=== PATIENT | female | born 1985 | race American Indian/Alaskan Native ===

== ENCOUNTER 2020-03-13 08:48 | Emergency (ER) | payer SELFPAY ==
--- NOTE | 2020-03-13 09:10 | Emergency Department Report ---
ED Seizure HPI - General Stated Complaint: SEIZURE Time Seen by Provider: 03/13/20 09:03 Source: patient, EMS Mode of arrival: Stretcher Limitations: No Limitations - History of Present Illness Initial Comments: Chief complaint: "I had a seizure." HPI: This is a 34-year-old female with history of marijuana dependence who presents with seizure. Her son witnessed seizure activity. Son called 911. Patient admittedly smoked marijuana just prior to the seizure taking place. She smokes marijuana several times throughout the day. She thinks she may have had a seizure earlier this week. At that time, she awakened after experiencing urinary incontinence. No previous history of seizures. No significant past medical history otherwise. MD Complaint: seizure -: Sudden, This morning Witnessed:: Yes Trauma: No Seizure History: none Place: home Possible Precipitating Event: drug use (Marijuana use) Associated Symptoms: denies other symptoms ED Review of Systems ROS: Stated complaint: SEIZURE Other details as noted in HPI Comment: All other systems reviewed and negative Constitutional: denies: fever, malaise Respiratory: denies: cough, shortness of breath Gastrointestinal: denies: abdominal pain, nausea, vomiting ED Past Medical Hx - Past Medical History Previous Medical History?: No - Surgical History Past Surgical History?: No - Social History Smoking Status: Never Smoker Substance Use Type: Marijuana ED Physical Exam - General Limitations: No Limitations General appearance: alert, in no apparent distress - Head Head exam: Present: atraumatic, normocephalic - Eye Eye exam: Present: normal appearance - ENT ENT exam: Present: mucous membranes moist - Neck Neck exam: Present: normal inspection, full ROM - Respiratory Respiratory exam: Present: normal lung sounds bilaterally. Absent: respiratory distress, wheezes, rales, rhonchi - Cardiovascular Cardiovascular Exam: Present: regular rate, normal rhythm, normal heart sounds. Absent: systolic murmur, diastolic murmur, rubs, gallop - GI/Abdominal GI/Abdominal exam: Present: soft, normal bowel sounds. Absent: distended, tenderness, guarding, rebound - Extremities Exam Extremities exam: Present: normal inspection - Neurological Exam Neurological exam: Present: alert, oriented X3 - Expanded Neurological Exam Expanded Patient oriented to: Present: person, place, time Speech: Present: fluid speech Cranial nerves: EOM's Intact: Normal Cerebellar function: Finger to Nose: Normal Upper motor neuron: Vincenzo Neglect: Normal Sensory exam: Upper Extremity Light Touch: Normal Motor strength exam: RUE: 5, LUE: 5, RLE: 5, LLE: 5 Best Eye Response ([place]): (4) open spontaneously Best Motor Response ([place]): (6) obeys commands Best Verbal Response ([place]): (5) oriented [place] Total: 15 - Psychiatric Psychiatric exam: Present: normal affect, normal mood - Skin Skin exam: Present: warm, dry, intact, normal color. Absent: rash ED Course Vital Signs 03/13/20 10:06 Temperature 98.6 F Pulse Rate 88 Respiratory 19 Rate Blood Pressure 119/76 [Left] O2 Sat by Pulse 99 Oximetry ED Medical Decision Making - Lab Data Result diagrams: 03/13/20 09:11 03/13/20 09:11 Laboratory Results - last 24 hr 03/13/20 03/13/20 09:11 09:11 WBC 9.5 RBC 4.33 Hgb 7.2 L Hct 24.6 L MCV 57 L MCH 17 L MCHC 29 L RDW 20.1 H Plt Count 222 Lymph % (Auto) Financial Operations Clerk Weber % (Auto) Financial Operations Clerk Eos % (Auto) Financial Operations Clerk Baso % (Auto) Financial Operations Clerk Lymph # (Auto) Financial Operations Clerk Weber # (Auto) Financial Operations Clerk Eos # (Auto) Financial Operations Clerk Baso # (Auto) Financial Operations Clerk Seg Neutrophils % Financial Operations Clerk Seg Neutrophils # Financial Operations Clerk Sodium 139 Potassium 4.9 Chloride 103.7 Carbon Dioxide 20 L Anion Gap 20 BUN 7 Creatinine 0.6 Estimated GFR > 60 BUN/Creatinine Ratio 12 Glucose 95 Calcium 8.8 Total Bilirubin 0.30 AST 22 ALT 16 Alkaline Phosphatase 70 Total Protein 7.6 Albumin 4.2 Albumin/Globulin Ratio 1.2 - EKG Data -: EKG Interpreted by Me EKG shows normal: sinus rhythm, axis, intervals, QRS complexes, ST-T waves Rate: normal - EKG Data Interpretation: normal EKG 03/13/20 10:21 EKG obtained 0958 EKG interpreted by me EKG obtained EKG interpreted by me Normal sinus rhythm normal rate normal axis normal intervals no ST elevation no ST-T signs of ischemia normal EKG - Radiology Data Radiology results: report reviewed CT head: Without contrast, no acute intracranial abnormality according radiology report - Medical Decision Making This is a healthy 34-year-old female with marijuana dependence. She presents with seizure at home. She admittedly smoked marijuana just prior to the episode. I suspect seizure caused by marijuana use. I strongly suggested cessation of marijuana use. Patient understands that she is not allowed to drive or swim until she is cleared by neurologist. She understands it will be dangerous to work at heights or near hot surfaces without supervision. Patient had normal chemistry. EKG normal. CT head within normal limits. CBC revealed anemia. Critical care attestation.: If time is entered above; I have spent that time in minutes in the direct care of this critically ill patient, excluding procedure time. ED Disposition Clinical Impression: Seizure, Marijuana dependence Disposition: DC-01 TO HOME OR SELFCARE Is pt being admited?: No Does the pt Need Aspirin: No Condition: Stable Instructions: New-Onset Seizure in Adults (ED), Cannabis Abuse (ED) Additional Instructions: You are not allowed to drive until you are cleared by neurologist. Referrals: BURTON MEJIA MD [Staff Physician] - 3-5 Days
[2020-03-13 09:50] LABS: Alanine Aminotransferase 16 units/L (7-56); Albumin 4.2 g/dL (3.9-5); Blood Urea Nitrogen 7 mg/dL (7-17); Calcium 8.8 mg/dL (8.4-10.2); Hemolysis Index 13
[2020-03-13 09:51] LABS: BUN/Creatinine Ratio 12
[2020-03-13 10:10] LABS: Hematocrit 24.6 % (30.3-42.9); Hemoglobin 7.2 gm/dl (10.1-14.3); Mean Corpuscular HGB Conc 29 % (30-34); Red Blood Count 4.33 M/mm3 (3.65-5.03)
[2020-03-13 10:13] LABS: Mean Corpuscular Volume 57 fl (79-97); Red Cell Distribution Width 20.1 % (13.2-15.2)
--- NOTE | 2020-03-13 10:22 | Cat Scan Report ---
CT head/brain wo con INDICATION: Seizure. TECHNIQUE: Routine CT head without contrast. All CT scans at this location are performed using CT dos e reduction for ALARA by means of automated exposure control. COMPARISON: None. FINDINGS: BRAIN / INTRACRANIAL CONTENTS: No acute hemorrhage, mass effect, midline shift, or hydrocephalus. No appreciable acute large territorial or lacunar infarct. No chronic infarct or focal atrophy. Normal b rain volume and ventricular/sulcal size for age. ORBITS: No significant abnormality of visualized orbits. SINUSES / MASTOIDS: No significant abnormality of visualized sinuses and mastoid air cells. ADDITIONAL FINDINGS: None. IMPRESSION: 1. No acute intracranial abnormality. Signer Name: Ayo Sanchez MD Signed: 03/13/2020 10:18 AM Workstation Name: [id number]
[2020-03-13 10:46] LABS: Platelet Count 222 K/mm3 (140-440)
[2020-03-13 11:54] VITALS: BP 140/77
== END 2020-03-13 11:09 | disposition home or self-care (01) ==
LOC: ED 08:48
DX: G40.909 Epilepsy, unspecified, not intractable, without status epilepticus (principal); F12.20 Cannabis dependence, uncomplicated
CPT/HCPCS: 36415; 70450; 80053; 85025; 93005

== ENCOUNTER 2020-05-14 09:30 | Emergency (ER) | payer SELFPAY ==
[2020-05-14] MEDS ORDERED: levETIRAcetam 500 MG TAB PO ONE (11:00)
--- NOTE | 2020-05-14 11:02 | Emergency Department Report ---
ED Seizure HPI - General Chief Complaint: Seizure Stated Complaint: SEIZURE Time Seen by Provider: 05/14/20 10:24 Source: patient, EMS Mode of arrival: Stretcher Limitations: No Limitations - History of Present Illness Initial Comments: 35-year-old female with history of seizure disorder presents to ED following seizure at home. Seizure was witnessed by her son. Patient reports recent onset approximately 2 months ago of seizures. States head CT at that time was normal. She is currently taking Keppra. Patient states this is her fifth seizure in 2 months. Patient has a neurology appointment June 24. She denies any recent head trauma, before or during the seizure. Patient reports mild headache currently. She denies any fever, vomiting. Patient denies alcohol use. MD Complaint: seizure -: This morning Description of Episode: loss of consciousness Witnessed:: Yes Trauma: No Seizure History: known seizure disorder, compliant with medication Place: home Possible Precipitating Event: stress Associated Symptoms: denies other symptoms. denies: chest pain, cough, fever/chills, shortness of breath Treatments Prior to Arrival: none - Related Data Home Medications Medication Instructions Recorded Confirmed Last Taken levETIRAcetam [Keppra XR TAB] 500 mg PO QDAY 05/14/20 05/14/20 2 Days Ago ~05/12/20 Previous Rx's Medication Instructions Recorded Last Taken Type levETIRAcetam [Keppra TAB] 750 mg PO BID #60 tablet 05/14/20 Unknown Rx Allergies Allergy/AdvReac Type Severity Reaction Status Date / Time No Known Allergies Allergy Unverified 05/14/20 09:54 ED Review of Systems ROS: Stated complaint: SEIZURE Other details as noted in HPI Comment: All other systems reviewed and negative Constitutional: denies: fever Respiratory: denies: cough, shortness of breath Cardiovascular: denies: chest pain Gastrointestinal: denies: nausea, vomiting Neurological: headache ED Past Medical Hx - Past Medical History Hx Seizures: Yes - Surgical History Past Surgical History?: No - Social History Smoking Status: Never Smoker Substance Use Type: None - Medications Home Medications: Home Medications Medication Instructions Recorded Confirmed Last Taken Type levETIRAcetam [Keppra TAB] 750 mg PO BID #60 tablet 05/14/20 Unknown Rx levETIRAcetam [Keppra XR TAB] 500 mg PO QDAY 05/14/20 05/14/20 2 Days Ago History ~05/12/20 ED Physical Exam - General Limitations: No Limitations General appearance: alert, in no apparent distress - Head Head exam: Present: atraumatic, normocephalic - Eye Eye exam: Present: normal appearance, PERRL, EOMI - ENT ENT exam: Present: mucous membranes moist - Neck Neck exam: Present: normal inspection - Respiratory Respiratory exam: Present: normal lung sounds bilaterally. Absent: respiratory distress - Cardiovascular Cardiovascular Exam: Present: regular rate, normal rhythm - GI/Abdominal GI/Abdominal exam: Present: soft. Absent: distended, tenderness - Extremities Exam Extremities exam: Present: normal inspection - Neurological Exam Neurological exam: Present: alert, oriented X3, CN II-XII intact. Absent: motor sensory deficit - Psychiatric Psychiatric exam: Present: normal affect, normal mood - Skin Skin exam: Present: warm, dry, intact, normal color ED Course Vital Signs 05/14/20 05/14/20 09:36 13:41 Temperature 98.7 F Pulse Rate 97 H 94 H Respiratory 18 12 Rate Blood Pressure 114/70 Blood Pressure 121/79 [Left] O2 Sat by Pulse 98 98 Oximetry ED Medical Decision Making - Lab Data Result diagrams: 05/14/20 12:27 05/14/20 12:27 - Medical Decision Making 35-year-old female with history of seizures presents to ED today for seizure at home. Patient reports onset of seizures 2 months ago. She reports she has since had 5 seizures. Patient has appointment with neurologist next month. She reports compliance with her Keppra. Patient noted with Keppra here in the ED. She has no neuro deficits on exam. No seizures during her ED stay. Patient will be discharged at this time. We will increase her dosage to 750 mg BID instead of 500 mg. Patient advised to follow-up with the neurologist as scheduled. Return precautions given. - Differential Diagnosis Seizure Critical care attestation.: If time is entered above; I have spent that time in minutes in the direct care of this critically ill patient, excluding procedure time. ED Disposition Clinical Impression: Seizure Disposition: DC-01 TO HOME OR SELFCARE Is pt being admited?: No Condition: Stable Instructions: Seizure, Adult Prescriptions: levETIRAcetam [Keppra TAB] 750 mg PO BID #60 tablet Referrals: PRIMARY CARE, [Primary Care Provider] - 3-5 Days MCKENNA JONES MD [Referring] - 3-5 Days Time of Disposition: 13:28
[2020-05-14 13:05] LABS: Basophils % (Auto) 0.3 % (0.0-1.8); Eosinophils # (Auto) 0.1 K/mm3 (0.0-0.4); Eosinophils % (Auto) 0.4 % (0.0-4.3); Hematocrit 24.8 % (30.3-42.9); Hemoglobin 7.4 gm/dl (10.1-14.3); Lymphocytes # (Auto) 2.2 K/mm3 (1.2-5.4); Lymphocytes % (Auto) 15.7 % (13.4-35.0); Mean Corpuscular HGB Conc 30 % (30-34); Monocytes # (Auto) 0.4 K/mm3 (0.0-0.8); Monocytes % (Auto) 3.1 % (0.0-7.3); Platelet Count 257 K/mm3 (140-440); Red Blood Count 4.32 M/mm3 (3.65-5.03)
[2020-05-14 13:06] LABS: Mean Corpuscular Volume 57 fl (79-97); Red Cell Distribution Width 21.8 % (13.2-15.2)
[2020-05-14 13:24] LABS: Blood Urea Nitrogen 6 mg/dL (7-17); Calcium 9.5 mg/dL (8.4-10.2); Hemolysis Index 0
[2020-05-14 13:26] LABS: BUN/Creatinine Ratio 9
[2020-05-14 13:41] VITALS: BP 121/79
== END 2020-05-14 13:35 | disposition home or self-care (01) ==
LOC: ED 09:30
DX: R56.9 Unspecified convulsions (principal)
CPT/HCPCS: 36415; 80048; 84703; 85025; 99283

== ENCOUNTER 2021-09-16 11:18 | Emergency (ER) | payer MEDICAID, OTHER ==
[2021-09-16] MEDS ORDERED: SODIUM CHLORIDE 0.9% 1000 ML 1,000 ML IV ONE (13:04)
[2021-09-16] MEDS ORDERED: levETIRAcetam 1000 MG/NS 0.75% 1,000 MG/100 ML BAG IV ONE (13:05)
--- NOTE | 2021-09-16 13:10 | Emergency Department Report ---
ED Seizure HPI - General Chief Complaint: Seizure Stated Complaint: SEIZURES Time Seen by Provider: 09/16/21 11:47 Source: patient, EMS Mode of arrival: Stretcher Limitations: No Limitations - History of Present Illness Initial Comments: 36-year-old female with a history of seizure who presents with an episode of seizure that happened while she was asleep this morning witnessed by a family member. According to the family member patient was having generalized muscle shakiness with eyes rolled all the way back. Seizure lasted for about 1 to 2 minutes. The seizure activity occurred around 10 AM this morning. Patient denies any knowledge of this. Patient reported that everything was well with her before she went to sleep last night. Patient denied any illicit drug use. No other modifying or positive factors reported. - Related Data Home Medications Medication Instructions Recorded Confirmed Last Taken levETIRAcetam [Keppra XR TAB] 500 mg PO QDAY 05/14/20 05/14/20 2 Days Ago ~05/12/20 Previous Rx's Medication Instructions Recorded Last Taken Type levETIRAcetam [Keppra TAB] 750 mg PO BID #60 tablet 05/14/20 Unknown Rx Ferrous Sulfate [Iron 325 MG] 325 mg PO DAILY 90 Days #90 tab 09/16/21 Unknown Rx Allergies Allergy/AdvReac Type Severity Reaction Status Date / Time No Known Allergies Allergy Unverified 05/14/20 09:54 ED Review of Systems ROS: Stated complaint: SEIZURES Other details as noted in HPI Comment: All other systems reviewed and negative Respiratory: denies: shortness of breath Cardiovascular: denies: chest pain, palpitations Neurological: other (Seizure) ED Past Medical Hx - Past Medical History Hx Seizures: Yes - Social History Smoking Status: Never Smoker Substance Use Type: None - Medications Home Medications: Home Medications Medication Instructions Recorded Confirmed Last Taken Type levETIRAcetam [Keppra TAB] 750 mg PO BID #60 tablet 05/14/20 Unknown Rx levETIRAcetam [Keppra XR TAB] 500 mg PO QDAY 05/14/20 05/14/20 2 Days Ago History ~05/12/20 Ferrous Sulfate [Iron 325 MG] 325 mg PO DAILY 90 Days #90 tab 09/16/21 Unknown Rx ED Physical Exam - General Limitations: No Limitations General appearance: alert, in no apparent distress - Head Head exam: Present: normal inspection - Eye Eye exam: Present: normal appearance Pupils: Present: normal accommodation - ENT ENT exam: Present: normal exam, normal orophraynx, mucous membranes moist, normal external ear exam - Neck Neck exam: Present: normal inspection, full ROM. Absent: tenderness - Respiratory Respiratory exam: Present: normal lung sounds bilaterally. Absent: respiratory distress, accessory muscle use - Cardiovascular Cardiovascular Exam: Present: regular rate, normal rhythm, normal heart sounds - GI/Abdominal GI/Abdominal exam: Present: soft, normal bowel sounds. Absent: distended, tenderness - Extremities Exam Extremities exam: Present: normal inspection, full ROM, normal capillary refill - Back Exam Back exam: Present: normal inspection. Absent: CVA tenderness (R), CVA tenderness (L) - Neurological Exam Neurological exam: Present: alert, oriented X3 - Psychiatric Psychiatric exam: Present: normal affect, normal mood - Skin Skin exam: Present: warm, intact, normal color ED Course Vital Signs 09/16/21 09/16/21 09/16/21 11:22 12:01 12:31 Temperature Pulse Rate 110 H 90 91 H Respiratory 14 18 15 Rate Blood Pressure 88/61 86/41 Blood Pressure 140/90 [Left] O2 Sat by Pulse 99 100 100 Oximetry 09/16/21 09/16/21 09/16/21 13:00 13:01 13:31 Temperature 98.6 F Pulse Rate 90 89 90 Respiratory 20 12 20 Rate Blood Pressure 100/64 91/64 92/66 Blood Pressure [Left] O2 Sat by Pulse 97 100 100 Oximetry 09/16/21 09/16/21 09/16/21 14:01 14:31 15:31 Temperature Pulse Rate 99 H 94 H 97 H Respiratory 17 17 16 Rate Blood Pressure 90/60 87/57 92/57 Blood Pressure [Left] O2 Sat by Pulse 100 100 100 Oximetry 09/16/21 16:01 Temperature Pulse Rate 93 H Respiratory 20 Rate Blood Pressure 133/93 Blood Pressure [Left] O2 Sat by Pulse 100 Oximetry - Reevaluation(s) Reevaluation #1: 09/16/21 13:08 Here with seizure activity with someone with history of seizure--currently taking Keppra--we will go ahead and order routine labs including CBC, CMP, UA and urine drug screen and also check Keppra level to rule out any electrolyte abnormality. In the meantime we will go ahead and give 1 g of Keppra, 1 g of normal saline IV fluid for hydration while waiting for work-up labs. Reevaluation #2: 09/16/21 16:17 Noted with low H&H at 7.7/26.0--I asked patient who said she has history of chronic anemia--we will discharge patient home to continue ferrous sulfate daily with close follow-up with her primary doctor. And also to continue to take seizure medication with close follow-up with neurology. Otherwise all her work- up was pretty unremarkable and within normal limits. ED Medical Decision Making - Lab Data Result diagrams: 09/16/21 13:09 09/16/21 13:09 Critical care attestation.: If time is entered above; I have spent that time in minutes in the direct care of this critically ill patient, excluding procedure time. ED Disposition Clinical Impression: Seizure Anemia Qualifiers: Anemia type: unspecified type Qualified Code(s): D64.9 - Anemia, unspecified Disposition: 01 HOME / SELF CARE / HOMELESS Is pt being admited?: No Does the pt Need Aspirin: No Condition: Stable Instructions: Seizure, Adult, [id number] Additional Instructions: Is important that you take your new iron supplement to help your symptoms : Follow-up with your neurology for further evaluation and treatment of your seizure In the meantime continue your Keppra as prescribed by your primary doctor Please do not hesitate to call or return to emergency room if your symptoms worsen Prescriptions: Ferrous Sulfate [Iron 325 MG] 325 mg PO DAILY 90 Days #90 tab Referrals: PRIMARY CARE, [Primary Care Provider] - 3-5 Days Time of Disposition: 16:21
[2021-09-16 13:30] LABS: Basophils # (Auto) 0.1 K/mm3 (0.0-0.1); Basophils % (Auto) 0.6 % (0.0-1.8); Eosinophils # (Auto) 0.1 K/mm3 (0.0-0.4); Eosinophils % (Auto) 0.9 % (0.0-4.3); Hemoglobin 7.7 gm/dl (10.1-14.3); Lymphocytes # (Auto) 1.5 K/mm3 (1.2-5.4); Lymphocytes % (Auto) 15.5 % (13.4-35.0); Mean Corpuscular HGB Conc 30 % (30-34); Monocytes # (Auto) 0.3 K/mm3 (0.0-0.8); Monocytes % (Auto) 3.3 % (0.0-7.3); Platelet Count 241 K/mm3 (140-440); Red Blood Count 4.55 M/mm3 (3.65-5.03)
[2021-09-16 13:37] LABS: INR 0.85 (0.87-1.13)
[2021-09-16 13:38] LABS: Partial Thromboplastin Time 23.1 Sec. (24.2-36.6)
[2021-09-16 13:40] LABS: Mean Corpuscular Volume 57 fl (79-97)
[2021-09-16 13:51] LABS: Alanine Aminotransferase 14 units/L (7-56); Albumin 4.3 g/dL (3.9-5); Blood Urea Nitrogen 13 mg/dL (7-17); Calcium 8.9 mg/dL (8.4-10.2); Hemolysis Index 14
[2021-09-16 13:59] LABS: BUN/Creatinine Ratio 22
[2021-09-16 16:13] VITALS: BP 133/93
== END 2021-09-16 17:42 | disposition home or self-care (01) ==
LOC: ED 11:18
DX: R56.9 Unspecified convulsions (principal); D64.9 Anemia, unspecified
CPT/HCPCS: 36415; 80053; 80177; 84443; 84484; 85025; 85610; 85730; 96361; 96374; 99284; J1953

== ENCOUNTER 2021-11-27 10:32 | Emergency (ER) | payer OTHER ==
[2021-11-27 10:58] VITALS: BP 141/97
[2021-11-27] MEDS ORDERED: LORazepam 2 MG/ML VIAL IV ONE (11:06)
[2021-11-27 11:48] LABS: Basophils # (Auto) 0.1 K/mm3 (0.0-0.1); Basophils % (Auto) 0.4 % (0.0-1.8); Eosinophils % (Auto) 0.1 % (0.0-4.3); Hematocrit 24.2 % (30.3-42.9); Hemoglobin 7.1 gm/dl (10.1-14.3); Lymphocytes # (Auto) 1.3 K/mm3 (1.2-5.4); Lymphocytes % (Auto) 9.8 % (13.4-35.0); Mean Corpuscular HGB Conc 30 % (30-34); Monocytes # (Auto) 0.4 K/mm3 (0.0-0.8); Platelet Count 702 K/mm3 (140-440); Red Blood Count 4.21 M/mm3 (3.65-5.03)
[2021-11-27 11:54] LABS: Amphetamine Screen,Urine Negative; Benzodiazepines Screen,Urine Negative; Cocaine Screen,Urine Negative; Methadone Screen,Urine Negative; Opiate Screen,Urine Negative
[2021-11-27 11:56] LABS: Mean Corpuscular Volume 57 fl (79-97); Red Cell Distribution Width 21.4 % (13.2-15.2)
[2021-11-27 12:12] LABS: Alanine Aminotransferase 13 units/L (7-56); Albumin 4.9 g/dL (3.9-5); BUN/Creatinine Ratio 8; Blood Urea Nitrogen 9 mg/dL (7-17); Calcium 9.4 mg/dL (8.4-10.2); Hemolysis Index 5
[2021-11-27 12:26] LABS: Cannabinoid Screen,Urine Positive
--- NOTE | 2021-11-27 13:04 | Emergency Department Report ---
ED Shortness of Breath HPI - General Chief Complaint: Anxiety Stated Complaint: ANXIETY Time Seen by Provider: 11/27/21 11:00 Source: patient Mode of arrival: Ambulatory Limitations: No Limitations - History of Present Illness Initial Comments: Patient is a 36-year-old female presenting to ED with complaint of shortness of breath and chest discomfort beginning yesterday. On arrival she appears extremely anxious. Per mother patient has history of seizures and smokes marijuana to keep them at bay. Complaint: shortness of breath, chest pain - Related Data Home Medications Medication Instructions Recorded Confirmed Last Taken levETIRAcetam [Keppra XR TAB] 500 mg PO QDAY 05/14/20 05/14/20 2 Days Ago ~05/12/20 Previous Rx's Medication Instructions Recorded Last Taken Type levETIRAcetam [Keppra TAB] 750 mg PO BID #60 tablet 05/14/20 Unknown Rx Ferrous Sulfate [Iron 325 MG] 325 mg PO DAILY 90 Days #90 tab 09/16/21 Unknown Rx Allergies Allergy/AdvReac Type Severity Reaction Status Date / Time No Known Allergies Allergy Unverified 05/14/20 09:54 ED Review of Systems ROS: Stated complaint: ANXIETY Other details as noted in HPI Constitutional: denies: chills, fever Respiratory: shortness of breath. denies: cough, orthopnea Cardiovascular: chest pain. denies: palpitations Gastrointestinal: denies: abdominal pain, nausea, diarrhea Genitourinary: denies: urgency, dysuria, discharge Musculoskeletal: denies: back pain, joint swelling, arthralgia Skin: denies: rash, lesions Neurological: denies: headache, weakness, paresthesias Psychiatric: denies: anxiety, depression ED Past Medical Hx - Past Medical History Previous Medical History?: Yes Hx Seizures: Yes - Surgical History Past Surgical History?: No - Social History Smoking Status: Unknown if ever smoked Substance Use Type: Marijuana - Medications Home Medications: Home Medications Medication Instructions Recorded Confirmed Last Taken Type levETIRAcetam [Keppra TAB] 750 mg PO BID #60 tablet 05/14/20 Unknown Rx levETIRAcetam [Keppra XR TAB] 500 mg PO QDAY 05/14/20 05/14/20 2 Days Ago History ~05/12/20 Ferrous Sulfate [Iron 325 MG] 325 mg PO DAILY 90 Days #90 tab 09/16/21 Unknown Rx ED Physical Exam - General Limitations: No Limitations General appearance: alert, anxious - Head Head exam: Present: atraumatic, normocephalic - Respiratory Respiratory exam: Present: normal lung sounds bilaterally. Absent: respiratory distress - Cardiovascular Cardiovascular Exam: Present: normal rhythm, tachycardia, normal heart sounds - GI/Abdominal GI/Abdominal exam: Present: soft. Absent: distended, tenderness - Rectal Rectal exam: Present: deferred - Neurological Exam Neurological exam: Present: alert, oriented X3 - Psychiatric Psychiatric exam: Present: anxious - Skin Skin exam: Present: warm, dry, intact, normal color ED Course Vital Signs 11/27/21 11/27/21 10:53 10:58 Pulse Rate 117 H Respiratory 16 Rate Blood Pressure 141/97 O2 Sat by Pulse 100 100 Oximetry ED Medical Decision Making - Lab Data Result diagrams: 11/27/21 11:18 11/27/21 11:18 - Medical Decision Making Labs reviewed. Patient has chronic anemia with today's hemoglobin of 7.1. This is near her baseline. WBC count 12.9. Chemistry grossly unremarkable. UDS pos itive for marijuana. Patient was given Ativan shortly after arrival for anxiety/agitation. On reassessment she appears calm and appropriate. Patient states she smoked marijuana prior to her symptoms. I suspect that the marijuana may have been laced, causing her to panic due to unfamiliar feeling. I discussed results with the patient and her mother. Advised her to discard the remainder of the marijuana. Stable for discharge home with return precautions. Critical care attestation.: If time is entered above; I have spent that time in minutes in the direct care of this critically ill patient, excluding procedure time. ED Disposition Clinical Impression: Intoxication with cannabis Disposition: 01 HOME / SELF CARE / HOMELESS Is pt being admited?: No Condition: Stable Instructions: What You Need to Know About Marijuana Use Time of Disposition: 14:15
--- NOTE | 2021-11-27 13:06 | XRay Report ---
CHEST 1 VIEW INDICATION / CLINICAL INFORMATION: Anxiety. Dyspnea FINDINGS: SUPPORT DEVICES: None. HEART / MEDIASTINUM: No significant abnormality. LUNGS / PLEURA: No significant pulmonary or pleural abnormality. No pneumothorax. ADDITIONAL FINDINGS: No significant additional findings. IMPRESSION: 1. No acute findings. Signer Name: Gino Dunham MD Signed: 11/27/2021 1:02 PM Workstation Name: [id number]
== END 2021-11-27 14:30 | disposition home or self-care (01) ==
LOC: ED 10:32
DX: F12.929 Cannabis use, unspecified with intoxication, unspecified (principal); R56.9 Unspecified convulsions; Z79.899 Other long term (current) drug therapy
CPT/HCPCS: 36415; 71045; 80053; 80307; 84484; 84703; 85025; 85379; 96374; 99284; J2060